=== PATIENT | male | born 1950 | race Caucasian/White ===

== ENCOUNTER 2023-12-02 11:02 | Inpatient (IN) | payer OTHER, MEDICARE ==
[2023-12-02] VITALS (14 sets, daily range): BP systolic 97–141; BP diastolic 62–78
[~2023-12-02] VITALS: Ht 195.6 cm; Wt 79.0 kg
[~2023-12-02 11:02] MED LIST: ADULT ASPIRIN R81 MG PO; ATORVASTATIN CA40 MG PO; BRILINTA90 MG PO; EZETIMIBE10 MG PO; FUROSEMIDE20 MG PO; LISINOP/HCTZ1 TA1 PO; TOPROL XL25 MG PO
[2023-12-02] MEDS ORDERED: ONDANSETRON HCl 4 MG/2 ML SDV IV ONE (11:05)
[2023-12-02] MEDS ORDERED: SODIUM CHLORIDE 0.9% 1,000 ML IV ONE ×2 (11:05→12:20)
--- NOTE | 2023-12-02 11:20 | NUR ---
PATIENT TO ROOM 13 VIA WHEELCHAIR
[2023-12-02 11:32] LABS: BASO% 0.3 % (0-3); EOS% 0.4 % (0-8); IMMATURE GRANULOCYTES 0.3 % (0.0-5.0); LYMPH% 12.5 % (15-41); MEAN CORPUSCULAR HGB 26.3 pG CALC (26.0-32.0); MEAN CORPUSCULAR HGB CONC 34.2 g/dL CAL (32.0-36.0); NEUT# 8.48 thou/uL (1.82-7.42); NEUT% 77.5 % (42-76); RED BLOOD COUNT 5.66 mill/uL (4.70-6.10); RED CELL DISTRI WIDTH 15.6 % (11.5-15.5)
[2023-12-02 11:33] LABS: HEMATOCRIT 43.6 % (39.0-50.0); HEMOGLOBIN 14.9 g/dl (14.0-18.0)
[2023-12-02 11:47] LABS: CREATININE 2.9 mg/dL (0.7-1.3); POTASSIUM 4.4 mmol/l (3.5-5.1)
[2023-12-02 11:48] LABS: ALBUMIN 4.7 g/dL (3.2-5.0); BILIRUBIN, TOTAL 1.4 mg/dL (0.2-1.3); TOTAL PROTEIN 7.5 g/dL (6.3-8.2)
[2023-12-02 12:26] LABS: URINE BILIRUBIN - DIPSTICK Negative (NEGATIVE); URINE BLOOD DIPSTICK Negative (NEGATIVE); URINE GLUCOSE - DIPSTICK Negative (NEGATIVE); URINE KETONE Negative (NEGATIVE); URINE LEUK ESTERASE Negative (NEGATIVE); URINE NITRITE - DIPSTICK Negative (Negative); URINE PROTEIN - DIPSTICK Negative (NEG-TRACE); URINE SPECIFIC GRAVITY 1.015; URINE UROBILINOGEN - DIPSTICK 0.2 E.U./dL (0.2)
--- NOTE | 2023-12-02 12:32 | NUR ---
pt alert, oriented Xs 4 updated on continued wait time
[2023-12-02 12:35] LABS: URINE COLOR Yellow
--- NOTE | 2023-12-02 13:22 | NUR ---
pt awake in room no further complaints
[2023-12-02] MEDS ORDERED: ONDANSETRON HCl 4 MG/2 ML SDV IV PRN (13:50)
[2023-12-02] MEDS ORDERED: ACETAMINOPHEN 325 MG/TAB PO PRN (13:50)
[2023-12-02] MEDS ORDERED: MORPHINE SULFATE 4 MG/ML VIAL IV PRN (13:50)
[2023-12-02] MEDS ORDERED: SODIUM CHLORIDE 0.9% 1,000 ML IV PRN (13:50)
[2023-12-02] MEDS ORDERED: Pantoprazole Sodium 40 MG VIAL (Protonix) IV SCH (13:50)
[2023-12-02] MEDS ORDERED: MAGNESIUM HYDROXIDE 30 ML UDC PO PRN (13:50)
--- NOTE | 2023-12-02 14:10 | NUR ---
report called to [facility] med surg
--- NOTE | 2023-12-02 14:35 | NUR ---
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
--- NOTE | 2023-12-02 14:40 | NUR ---
PT ARRIVED TO UNIT VIA WHEELCHAIR TRANSPORT, PT RESTING IN THE BED WITH A FLAT AFFECT. RESPIRATIONS ARE EVEN AND UNLABORED, LUNGS ARE CLEAR, BOWEL SOUNDS ARE ACTIVE, PEDAL PULSES ARE PALPABLE TO TOUCH, PT DENIES PAIN AT THIS TIME. PT DID REPORT "NOT EATING ANYTHING FOR THE PAST 15 DAYS" PT REPORTS HAVING A HARD TIME SWALLOWING. PERFORMED A SWALLOW EVAL WITH WATER AND PT TOLERATED WITHOUT ANY ISSUES. GAVE PT SOME APPLESAUCE, PT HELD APPLESAUCE IN MOUTH BUT WAS ABLE TO SWALLOW WITHOUT ANY ISSUES.
[2023-12-02] MEDS ORDERED: PANTOPRAZOLE SODIUM Sesquihydr 40 MG/TAB PO SCH (15:00)
--- NOTE | 2023-12-02 15:45 | NUR ---
NOTIFIED DR MONTES DE OCA OF PT'S SWALLOWING. DR MONTES DE OCA IS CHANGING PT TO A PUREED DIET AND ORDERING A SWALLOW EVALUATION WITH
--- NOTE | 2023-12-02 19:40 | NUR ---
PATIENT IN BED RESTING WATCHING TV. BED SIDE REPORT COMPLETED. AO X4. RESPIRATIONS CLEAR AND UNLABORD. BOWEL SOUNDS PRESENT. EQUAL STRENGTH IN EXTREMITYS. CAN MAKE NEEDS KNOWN, NONE NEEDED AT THIS TIME. BED AT LOWEST POSITION, CALL LIGHT WITH IN REACH.
[2023-12-02] MEDS ORDERED: ALUM & MAG HYDROX-SIMETHICONE 30 ML PO PRN (20:05)
--- NOTE | 2023-12-02 20:35 | NUR ---
PATIENT IN BED WATCHING TV. CAN MAKE NEEDS KNOWN, NONE NEEDED AT THIS TIME. BED AT LOWEST POSITION. CALL LIGHT WITH IN REACH.
[2023-12-02] MEDS ORDERED: TICAGRELOR BASE 90 MG TAB PO SCH (21:00)
[2023-12-02] MEDS ORDERED: ATORVASTATIN CALCIUM 40 MG/TAB PO SCH (21:00)
[2023-12-02] MEDS ORDERED: Heparin SODIUM (Porcine) 5,000 UNITS/ML SDV SC SCH (21:00)
[2023-12-03] VITALS (10 sets, daily range): BP systolic 103–125; BP diastolic 49–74
--- NOTE | 2023-12-03 00:28 | NUR ---
PATIENT IS RESTING IN BED WITH EYES CLOSED. RESPONDS TO VERBAL STIMULI. CAN MAKE NEEDS KNOWN. NONE NEEDED AT THIS TIME. BED AT LOWEST POSITION, CALL LIGHT WITH IN REACH.
--- NOTE | 2023-12-03 04:21 | NUR ---
PATIENT IN BED ASLEEP EYES CLOSED. RESPIRATIONS EVEN AND UNLABORD. CCAN MAKE NEEDS KNOWN. BED AT LOWEST POSITION, CALL LIGHT WITH IN REACH.
[2023-12-03 05:29] LABS: BASO% 0.4 % (0-3); EOS% 0.8 % (0-8); HEMATOCRIT 38.2 % (39.0-50.0); IMMATURE GRANULOCYTES 0.3 % (0.0-5.0); LYMPH% 15.9 % (15-41); MEAN CELL VOLUME 78.9 fL CALC (80.0-100.0); MEAN CORPUSCULAR HGB 26.7 pG CALC (26.0-32.0); MEAN CORPUSCULAR HGB CONC 33.8 g/dL CAL (32.0-36.0); MONO% 10.3 % (2-13); NEUT# 7.58 thou/uL (1.82-7.42); NEUT% 72.3 % (42-76); RED BLOOD COUNT 4.84 mill/uL (4.70-6.10); RED CELL DISTRI WIDTH 15.6 % (11.5-15.5)
[2023-12-03 05:30] LABS: CREATININE 2.1 mg/dL (0.7-1.3); POTASSIUM 4.4 mmol/l (3.5-5.1)
[2023-12-03 05:33] LABS: BILIRUBIN, TOTAL 1.3 mg/dL (0.2-1.3); CREATININE 2.1 mg/dL (0.7-1.3); MAGNESIUM 1.9 mg/dL (1.6-2.3); POTASSIUM 4.4 mmol/l (3.5-5.1)
[2023-12-03 05:34] LABS: ALBUMIN 3.3 g/dL (3.2-5.0); TOTAL PROTEIN 5.6 g/dL (6.3-8.2)
[2023-12-03 05:40] LABS: HEMOGLOBIN 12.9 g/dl (14.0-18.0)
--- NOTE | 2023-12-03 07:10 | NUR ---
REPORT RECEIVED FROM ALEXANDRRN
--- NOTE | 2023-12-03 08:30 | NUR ---
PT RESTING IN SEMI FOWLERS POSITION,A&O X3;ASSESSMENT COMPLETED;RESPIRATIONS EVEN AND UNLABORED ON RA,CLEAR LUNG SOUNDS;ABDOMEN SOFT ON PALPATION AND ACTIVE IN ALL 4 QUADRANTS;STRONG PEDAL PULSES;SKIN INTACT;TELE MONITORING IN PLACE;#20G TO LAC INFUSING NS @ 100ML/HR,SITE APPEARS HEALTHY;PT DENIES ANY ADDITIONAL NEEDS AND IS ENCOURAGED TO CALL FOR ASSISTANCE IF NEEDED;FALL PRECAUTIONS REMAIN IN PLACE WITH BED IN THE LOWEST POSITION AND CALL LIGHT IN REACH;FREQUENT ROUNDS MADE.
[2023-12-03] MEDS ORDERED: ASPIRIN 81 MG/TAB PO SCH (09:00)
--- NOTE | 2023-12-03 11:15 | NUR ---
AT BEDSIDE DISCUSSING POC.
--- NOTE | 2023-12-03 11:20 | NUR ---
PT RESTING IN SEMI FOWLERS POSITION WATCHING TV;RESPIRATIONS EVEN AND UNLABORED ON RA;PT DENIES ANY CURRENT PAIN OR NEEDS;TELE MONITORING IN PLACE;IV SITE PATENT INFUSING NS WITH EASE;PT ENCOURAGED TO CALL FOR ASSISTANCE IF NEEDED;FALL PRECAUTIONS REMAIN IN PLACE WITH BED IN THE LOWEST POSITION AND CALL LIGHT IN REACH;FREQUENT ROUNDS MADE.
--- NOTE | 2023-12-03 15:35 | NUR ---
PT RESTING IN SEMI FOWLERS POSITION;RESPIRATIONS REMAIN EVEN AND UNLABORED ON RA;PT DENIES ANY CURRENT PAIN OR DISCOMFORTS;TELE MONITORING IN PLACE;IV SITE REMAINS PATENT INFUSING NS WITH EASE;URINAL EMPTIED OF 400CC OF CLEAR/YELLOW URINE;ENCOURAGED PT TO CALL FOR ASSISTANCE IF NEEDED;CALL LIGHT IN REACH;FREQUENT ROUNDS MADE.
--- NOTE | 2023-12-03 20:19 | NUR ---
RECEIVED REPROT FROM [employer] NURSE ADRI CONN. PT NOTED SITTING UP HIGH FOWLERS IN BED, WATCHING TV. PT IS A/OX3, RM AIR. PT DENIES ANY PAIN AT THIS TIME. NURSING ASSESSMENT COMPLETED, IV SITE APPEARS HEALTHY AND INTACT WITH FLUIDS RUNNNING PER EMAR. TELE MONITOR IN PLACE. EDUCATED PT ON PLAN OF CARE, SPECIMEN NEEDED, AND MED SCHEDULE. CALL LIGHT WITHIN REACH AND SAFETY PRECAUTIONS IN PLACE.
[2023-12-04] VITALS: BP 103/59
--- NOTE | 2023-12-04 | NUR ---
PT LAYING IN BED SEMI FOWELRS, RESTING COMFORTABLY AT THIS TIME. NO S/S OF DISTRESS. CALL LIGHT WITHIN REACH AND SAFETY PRECAUTIONS IN PLACE.
[2023-12-04 04:00] VITALS: BP 102/56
[2023-12-04 04:12] VITALS: BP 102/56
--- NOTE | 2023-12-04 04:46 | NUR ---
PT LAYING IN BED SEMI FOWLERS, EYES CLOSED. RESTING AT THIS TIME. NO S/S OF DISTRESS. CALL LIGHT WITHIN REACH AND SAFETY PRECAUTIONS IN PLACE.
[2023-12-04 04:55] LABS: BASO% 0.8 % (0-3); EOS% 2.7 % (0-8); HEMATOCRIT 36.6 % (39.0-50.0); HEMOGLOBIN 12.2 g/dl (14.0-18.0); IMMATURE GRANULOCYTES 0.5 % (0.0-5.0); LYMPH% 29.9 % (15-41); MEAN CELL VOLUME 78.9 fL CALC (80.0-100.0); MEAN CORPUSCULAR HGB 26.3 pG CALC (26.0-32.0); MEAN CORPUSCULAR HGB CONC 33.3 g/dL CAL (32.0-36.0); MONO% 11.6 % (2-13); NEUT# 4.99 thou/uL (1.82-7.42); NEUT% 54.5 % (42-76); RED BLOOD COUNT 4.64 mill/uL (4.70-6.10); RED CELL DISTRI WIDTH 15.7 % (11.5-15.5)
[2023-12-04 05:16] LABS: ALBUMIN 3.2 g/dL (3.2-5.0); BILIRUBIN, TOTAL 0.9 mg/dL (0.2-1.3); CREATININE 1.9 mg/dL (0.7-1.3); MAGNESIUM 1.8 mg/dL (1.6-2.3); POTASSIUM 4.3 mmol/l (3.5-5.1); TOTAL PROTEIN 5.5 g/dL (6.3-8.2)
[2023-12-04 06:55] VITALS: BP 102/65
--- NOTE | 2023-12-04 08:00 | NUR ---
REPORT RECEIVED FROM SUZY RN. MARSHALL X 4. S1S2 NOTED, PULSES STRONG. SINUS TACH ON TELE, HR 110. LUNGS CLEAR. BOWEL SOUNDS ACTIVE. PATIENT CURRENTLY RESTING IN BED.
[2023-12-04] MEDS ORDERED: METOPROLOL SUCCINATE 25 MG/TAB-TOPROL XL PO SCH (09:00)
[2023-12-04 10:06] VITALS: BP 114/56
[2023-12-04 10:08] VITALS: BP 114/56
--- NOTE | 2023-12-04 12:00 | NUR ---
PATIENT SITTING UP IN BED EATING. DENIES ANY NEEDS AT THIS TIME. CALL LIGHT IN REACH. VSS.
--- NOTE | 2023-12-04 13:39 | NUR ---
Discharged in stable condition via Wheelchair to Home with family as requested by family. All belongings sent with pt. IV removed. Discharge instructions given, all questions answered.
== END 2023-12-04 13:32 | disposition home or self-care (01) | DRG 640 ==
LOC: ED 11:02 → ED-I 13:05 → ED 13:20 → MS2 13:21
PROVIDERS: Family Medicine; Internal Medicine Nephrology; ADMIT Student in an Organized Health Care Education/Training Program; ATTEND Student in an Organized Health Care Education/Training Program
DX: E87.1 Hypo-osmolality and hyponatremia (principal); N17.0 Acute kidney failure with tubular necrosis; I13.0 Hypertensive heart and chronic kidney disease with heart failure and stage 1 through stage 4 chronic kidney disease, or unspecified chronic kidney disease; I50.9 Heart failure, unspecified; N18.32 Chronic kidney disease, stage 3b; R19.7 Diarrhea, unspecified; E86.0 Dehydration; E86.9 Volume depletion, unspecified; E87.20 Acidosis, unspecified; I95.9 Hypotension, unspecified; E87.8 Other disorders of electrolyte and fluid balance, not elsewhere classified; R13.10 Dysphagia, unspecified; I25.10 Atherosclerotic heart disease of native coronary artery without angina pectoris; K57.30 Diverticulosis of large intestine without perforation or abscess without bleeding; K80.20 Calculus of gallbladder without cholecystitis without obstruction; K21.9 Gastro-esophageal reflux disease without esophagitis; Z95.5 Presence of coronary angioplasty implant and graft; Z86.73 Personal history of transient ischemic attack (TIA), and cerebral infarction without residual deficits; Z87.11 Personal history of peptic ulcer disease